=== PATIENT | male | born 1945 | race Caucasian/White ===

== ENCOUNTER 2016-12-11 10:26 | Day surgery (SDC) | payer BC ==
[2016-12-08 14:52] VITALS: BMI 27.5
[2016-12-11] MEDS ORDERED: PROPOFOL 20 ML ONE ×3 (11:15)
[2016-12-11] MEDS ORDERED: LIDOCAINE HCL/PF 1% SDV 5ML VIAL ONE (11:16)
[2016-12-11] MEDS ORDERED: ePHEDrine SULFATE 50 MG/1 ML AMPULE ONE (11:55)
[2016-12-11 12:21] VITALS: TEMP 97.9
[2016-12-11 13:10] VITALS: BP 128/59; PULSE 73
--- NOTE | 2016-12-13 13:51 | PATH ---
Surgical Pathology Report Patient Name: DEJA HARRIS [facility]. Rec. #: [id number] /Age/Gender: 1945 (Age: 71) / M Account: [id number] Location: U-ENDOSCOPY Taken: 12/11/2016 Received: 12/11/2016 Reported: 12/13/2016 Physicians: Jesus Alberto Perera M.D. Specimen(s) Received A: POLYP ASCENDING COLON B: POLYP DESCENDING COLON Clinical History Screening for malignant neoplasm Colon polyps, redundant colon, diverticulosis Final Diagnosis A. ASCENDING COLON, POLYP, POLYPECTOMY: TUBULAR ADENOMA. B. DESCENDING COLON, POLYP, POLYPECTOMY: TUBULAR ADENOMA. Electronically Signed Argelia Amin M.D. Gross Description A. Received in formalin, labeled "polyp ascending colon" are 5 fournier, irregular portions of soft tissue ranging from 0.1-0.2 cm. in greatest dimension. The specimens are submitted in toto in one cassette. B. Received in formalin, labeled "polyp descending" is a fournier, irregular portion of soft tissue measuring 0.3 cm. in greatest dimension. The specimen is submitted in toto in one cassette. 12/11/201612/11/2016
== END 2016-12-11 14:00 | disposition home or self-care (01) ==
LOC: JASU-ENDO 10:26
PROVIDERS: ATTEND Internal Medicine Gastroenterology
PROC: 0DBM8ZX Excision of Descending Colon, Via Natural or Artificial Opening Endoscopic, Diagnostic (ICD-10-PCS; 2016-12-11)
PROC: 0DBK8ZX Excision of Ascending Colon, Via Natural or Artificial Opening Endoscopic, Diagnostic (ICD-10-PCS; principal; 2016-12-11 11:30)
DX: Z12.11 Encounter for screening for malignant neoplasm of colon (principal); Z86.010 Personal history of colon polyps; K57.30 Diverticulosis of large intestine without perforation or abscess without bleeding; D12.2 Benign neoplasm of ascending colon; D12.4 Benign neoplasm of descending colon; D12.3 Benign neoplasm of transverse colon; K63.89 Other specified diseases of intestine
CPT/HCPCS: 88305-TC

== ENCOUNTER 2017-08-07 05:11 | Day surgery (SDC) | payer BC ==
[2017-08-02 11:46] VITALS: BMI 29.1
[~2017-08-07 05:11] MED LIST: TOBRA 0.3%/DEXAMETH 0.1% OPHTHALMIC SUSP 2.5 ML BTL TP ONE
[2017-08-07] MEDS ORDERED: TOBRA 0.3%/DEXAMETH 0.1% OPHTHALMIC SUSP 2.5 ML BTL ONE (07:39)
[2017-08-07] MEDS ORDERED: LIDOCAINE HCL/PF 1% SDV 5ML VIAL ONE (07:40)
[2017-08-07] MEDS: PHENYLEPHRINE 2.5% OPHTH SOLN 15 ML BOTTLE OP SCH ×3 (08:30→08:40)
[2017-08-07] MEDS: MOXIFLOXACIN HCL 0.5% OPHTHALMIC 3 ML BOTTLE OP SCH ×3 (08:30→08:40)
[2017-08-07] MEDS: CYCLOPENTOLATE HCL 1% OPHTH SOLN 2 ML BOTTLE OP SCH ×3 (08:30→08:40)
[2017-08-07] MEDS: TROPICAMIDE 1% OPHTH SOLN 15 ML BOTTLE OP SCH ×3 (08:30→08:40)
[2017-08-07 08:40] VITALS: TEMP 98.6
[2017-08-07] MEDS ORDERED: TETRACAINE 0.5% OPHTH SOLN 2 ML BOTTLE OD ONE (09:56)
[2017-08-07] MEDS ORDERED: MIDAZOLAM HCL 2 MG/2 ML SINGLE DOSE VIAL ONE (09:59)
[2017-08-07] MEDS ORDERED: POVIDONE-IODINE 5% OPHTHALMIC PREP 30 ML SOLUTION OD ONE (10:11)
[2017-08-07] MEDS ORDERED: LIDOCAINE HCL 1% PRESERVATIVE FREE - 30ML VIAL IO ONE (10:19)
[2017-08-07] MEDS ORDERED: BSS (NA/CA/MG/K) BALANCED SALT SOLUTION OPHTH SOLN 15 ML BOTTLE OD ONE (10:19)
[2017-08-07] MEDS ORDERED: CHONDROITIN SU A/HYALUR SOD 1 KIT IO ONE (10:19)
[2017-08-07] MEDS ORDERED: EPINEPHrine/PF 1 MG/1 ML (1:1,000) AMPULE SQ ONE (10:32)
[2017-08-07] MEDS ORDERED: EPINEPHrine/PF 1 MG/1 ML (1:1,000) AMPULE ONE (10:42)
[2017-08-07] MEDS ORDERED: TOBRA 0.3%/DEXAMETH 0.1% OPHTHALMIC SUSP 2.5 ML BTL TP ONE (11:14)
--- NOTE | 2017-08-07 11:21 | HP ---
History & Physical Update - History History: No Change - Physical Physical: No Change - Assessment Assessment: No Change - Plan Plan: No Change
[2017-08-07 11:47] VITALS: PULSE 50
[2017-08-07 12:17] VITALS: BP 163/81
--- NOTE | 2017-08-08 08:05 | OP ---
DATE OF OPERATION: 08/07/2017 SURGEON: Shade Jesus MD PREOPERATIVE DIAGNOSIS: Cataract, right eye. OPERATION: Phacoemulsification and intraocular lens implantation, right eye. POSTOPERATIVE DIAGNOSIS: Cataract, right eye. ANESTHESIA: Topical. COMPLICATIONS: None. BLOOD LOSS: None. SPECIMEN: None. BRIEF HISTORY: The patient is a 72-year-old man who presented with decreased vision in the right eye down to 20/70 due to a 2+ to 3+ nuclear sclerotic lens and anterior cortical changes. After the risks, benefits, and alternatives to cataract surgery were discussed with the patient including the increased risk due to the moderately dilating pupil, the patient consented to surgery. DESCRIPTION OF PROCEDURE: The patient was brought to the operating room and prepped and draped in the usual sterile fashion. An eyelid speculum was inserted in the right eye. A paracentesis was made, and the anterior chamber was inflated with nonpreserved lidocaine. This was followed by injection of Viscoat. At this point, it was noted that there was only a moderately dilating pupil that intermittently constricted down from 4.5 to 4 mm. We determined at this point to place 4 iris hooks around the iris in order to enlarge and stabilize the pupil. This was done without incident. A groove was made in the temporal clear cornea which was tunneled forward with a crescent blade. The anterior chamber was entered with a 2.75 keratome. The cystotome was used to make an incision in the center of the capsule, and a continuous curvilinear capsulorrhexis was created. The lens was hydrodissected until it was found to rotate freely within the capsular bag. Phacoemulsification was started. However, it was noted that there was very minimal phacoemulsification energy provided by the phacoemulsification tip. The tip was changed, and a similar incident occurred. At this point, the phacoemulsification machine was turned off and restarted, and sculpting was completed. However, upon quadrant removal, it was noted that irrigation could not be stopped from the machine. At this point, a new machine was brought out and restarted, and quadrant removal and further phacoemulsification was completely with this new machine. Irrigation and aspiration were used to remove residual cortical material. The anterior chamber and capsular bag were reinflated with Provisc, and a 21.0-diopter SN60WF AcrySof intraocular lens was injected into the capsular bag using the Sheridan injector. The lens was dialed into place using a Sinskey hook. Irrigation and aspiration were used to remove residual Viscoelastic. The wound was stromally hydrated until it was found to be watertight. The 4 previously placed iris hooks were removed without incident. The pupil was found to be round and regular with no peaking. The wound was found to be watertight, and the eye was at an appropriate pressure. The eyelid speculum was removed from the eye, and TobraDex drops and a clear shield were placed over the right eye. The patient was transferred to the recovery room in stable condition and will follow up tomorrow. Han PHILIP/[id number]
== END 2017-08-07 12:15 | disposition home or self-care (01) ==
LOC: JASU-SURG 05:11 → EDSTATUS 11:15 → JASU-SURG 12:15
PROVIDERS: ATTEND Ophthalmology
PROC: 08RJ3JZ Replacement of Right Lens with Synthetic Substitute, Percutaneous Approach (ICD-10-PCS; principal; 2017-08-07 10:00)
DX: H25.11 Age-related nuclear cataract, right eye (principal); H57.04 Mydriasis

== ENCOUNTER 2017-12-21 01:33 | Emergency (ER) | payer BC ==
[2017-12-21 02:06] VITALS: TEMP 97.3; BMI 33.9
--- NOTE | 2017-12-21 02:53 | PDOC ---
Attending Attestation - HPI HPI: 12/21/17 03:02 The patient is a 72 year old male with a significant PMH of type 2 diabetes, HTN , and past stroke (4 years ago, on Plavix) who presents to the emergency department with bilateral leg pain. He describes his leg pain as a bilateral burning sensation which is aggravated by lying still and alleviated by ambulating. He reports he has been unable to sleep secondary to his pain. He denies back pain. The patient reports receiving Gabapentin from his PCP which he has used to some relief. Allergies: Heparin PCP: Dr. Lewis <Anson Figueredo - Last Filed: 12/21/17 03:02> - Resident Resident Name: Juan Carlos Sy - ED Attending Attestation I have performed the following: I have examined & evaluated the patient, The case was reviewed & discussed with the resident, I agree w/resident's findings & plan, Exceptions are as noted - Physicial Exam PE: 12/21/17 05:04 *Physical Exam General Appearance: Yes: Appropriately Dressed. No: Apparent Distress, Intoxicated HEENT: positive: EOMI, MARLIN, Normal ENT Inspection, Normal Voice, TMs Normal, Pharynx Normal. negative: Pale Conjunctivae, Photophobia, Scleral Icterus (R), Scleral Icterus (L) Neck: positive: Trachea midline, Normal Thyroid, Supple. negative: Tender, Rigid, Carotid bruit, Stridor, Lymphadenopathy (R), Lymphadenopathy (L), Thyromegaly Respiratory/Chest: positive: Lungs Clear, Normal Breath Sounds. negative: Chest Tender, Respiratory Distress, Accessory Muscle Use, Labored Respiration, RES, Crackles, Rales, Rhonchi, Stridor, Wheezing, Dullness Cardiovascular: positive: Regular Rhythm, Regular Rate, S1, S2. negative: Edema , JVD, Murmur, Bradycardia, Tachycardia Vascular Pulses: Dorsalis-Pedis (R): 2+, Doralis-Pedis (L): 2+ Gastrointestinal/Abdominal: positive: Normal Bowel Sounds, Flat, Soft. negative : Tender, Organomegaly, Pulsatile Mass, Increased Bowel Sounds, Decreased BS, Distended, Guarding, Rebound, Hernia, Hepatomegaly, Spleenomegaly Lymphatic: negative: Adenopathy, Tenderness Musculoskeletal: positive: Normal Inspection. negative: CVA Tenderness, Decreased Range of Motion Extremity: positive: Normal Capillary Refill, Normal Inspection, Normal Range of Motion, Pelvis Stable. negative: Tender, Pedal Edema, Swelling, Erythema Integumentary: positive: Normal Color, Dry, Warm. negative: Cyanotic, Erythema , Jaundice, Rash Neurologic: positive: custom home installer II-XII NML intact, Fully Oriented, Alert, Normal Mood/ Affect, Motor Strength 5/5. negative: EOM Palsy, Facial Droop, Sensory Deficit - Medical Decision Making 12/25/17 19:37 pt treated and released <Jone Castillo - Last Filed: 12/25/17 19:37>
--- NOTE | 2017-12-21 02:55 | PDOC ---
History of Present Illness - General Chief Complaint: Pain, Acute Stated Complaint: LEG PAIN Time Seen by Provider: 12/21/17 02:05 History Source: Patient Exam Limitations: No Limitations - History of Present Illness Initial Comments: 12/21/17 03:17 72M with pmh of HTN (usually in the 140's-150's, on metroprolol and hydralyizine ) stroke 4 years ago on Plavix and DM2, currently on Amoxicillin presents with bilateral 10/10 burning sensation in the legs since yesterday morning of equal distribution throughout the legs. Was given Gabapentin by his canary raiser which worked for an hour before the pain came back. The pain is exacerbated by immobility and unchanged by any motion of the spine, hips or knees (either flexion or extension) PCP: Debbie Past History - Past Medical History Allergies/Adverse Reactions: Allergies Allergy/AdvReac Type Severity Reaction Status Date / Time heparin Allergy Unknown Verified 12/21/17 01:58 Home Medications: Ambulatory Orders Atorvastatin Ca [Lipitor] 20 mg PO HS 08/11/15 Hydralazine HCl 100 mg PO BID 12/11/16 Insulin Glargine,Hum.rec.anlog [Toujeo Solostar] 18 unit SQ DAILY 12/11/16 Metoprolol Tartrate 50 mg PO BID 12/11/16 Escitalopram Oxalate [Lexapro -] 5 mg PO DAILY 08/02/17 Clopidogrel Bisulfate [Plavix -] 75 mg PO DAILY 08/07/17 Anemia: No Asthma: No Cancer: Yes (LOW GRADE LYMPHOMA) Cardiac Disorders: No CVA: Yes COPD: No CHF: No Dementia: No Diabetes: Yes GI Disorders: Yes (DIVERTICULOSIS, HEMORRHOIDS,GERD) Disorders: No HTN: Yes Hypercholesterolemia: Yes Liver Disease: No Seizures: No Thyroid Disease: No - Surgical History Abdominal Surgery: Yes (UMBILICAL HERNIA REPAIR) Appendectomy: No Cardiac Surgery: No Cholecystectomy: No GI Surgery: (HEMERRHOID) Lung Surgery: No Neurologic Surgery: No Orthopedic Surgery: No - Immunization History Immunization Up to Date: Yes - Suicide/Smoking/Psychosocial Hx Smoking Status: Yes Smoking History: Never smoked Have you smoked in the past 12 months: No Number of Cigarettes Smoked Daily: 35 If you are a former smoker, when did you quit?: 1984 Information on smoking cessation initiated: No 'Breaking Loose' booklet given: 12/31/13 Hx Alcohol Use: No Drug/Substance Use Hx: No Substance Use Type: Alcohol Hx Substance Use Treatment: No Review of Systems - Review of Systems Able to Perform ROS?: Yes Is the patient limited Tongan proficient: No Constitutional: No: Symptoms Reported HEENTM: No: Symptoms Reported Respiratory: No: Symptoms reported Cardiac (ROS): No: Symptoms Reported ABD/GI: No: Symptoms Reported : No: Symptoms Reported Musculoskeletal: Yes: See HPI Integumentary: No: Symptoms Reported Neurological: No: Symptoms reported All Other Systems: Reviewed and Negative *Physical Exam - Vital Signs Last Vital Signs Temp Pulse Resp BP Pulse Ox 97.3 F L 64 20 211/103 97 12/21/17 01:35 12/21/17 01:35 12/21/17 01:35 12/21/17 01:35 12/21/17 01:35 - Physical Exam General Appearance: Yes: Nourished, Appropriately Dressed, Mild Distress HEENT: positive: EOMI, MARLIN, Normal ENT Inspection Respiratory/Chest: positive: Lungs Clear, Normal Breath Sounds. negative: Chest Tender, Respiratory Distress Cardiovascular: positive: Regular Rhythm, Regular Rate, S1, S2 Gastrointestinal/Abdominal: positive: Normal Bowel Sounds, Flat, Soft Extremity: positive: Normal Capillary Refill, Normal Inspection, Normal Range of Motion, Tender, Calf Tenderness (and along the leg). negative: Coldness, Cyanosis Integumentary: positive: Normal Color, Dry, Warm Neurologic: positive: Fully Oriented, Alert, Normal Mood/Affect ED Treatment Course - LABORATORY CBC & Chemistry Diagram: 12/21/17 03:13 12/21/17 03:13 Medical Decision Making - Medical Decision Making 12/21/17 03:27 Will draw basic labs, electrolytes, Lumbar spine ct pending. Patient bp in the 21's, will give morphine to address pain and bp control 12/21/17 03:31 12/21/17 05:[address] negative Duplex pending 12/21/17 07:06 Patient signed out to Dr. 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
[2017-12-21] MEDS ORDERED: LABETALOL HCL 5 MG/1 ML (100MG/20 ML VIAL) IVPUSH ONE (02:57)
[2017-12-21] MEDS ORDERED: morphine CARPU-JECT 4 MG/1 ML DISP.SYRIN IVPUSH ONE (02:59)
[2017-12-21] MEDS ORDERED: MORPHINE SULFATE 10 MG/1 ML *VIAL ONE (03:12)
[2017-12-21] MEDS ORDERED: LABETALOL HCL 5 MG/1 ML (200MG/40ML VIAL) IVPB ONE (03:13)
[2017-12-21 03:23] LABS: BASO % 1.3 % (0-2.0); EOS % 2.8 % (0-4.5); HEMATOCRIT 44.8 % (35.4-49); HEMOGLOBIN 14.7 GM/dL (11.7-16.9); MCH 29.7 pg (25.7-33.7); MCHC 32.7 g/dl (32.0-35.9); MEAN CELL VOLUME 90.7 fl (80-96); MONO % 17.1 % (3.8-10.2); NEUT % 50.8 % (42.8-82.8); PLATELET COUNT 286 K/MM3 (134-434); RBC 4.94 M/mm3 (4.00-5.60); RDW 14.9 % (11.9-15.9)
[2017-12-21 03:51] LABS: ALBUMIN 3.4 g/dl (3.4-5.0); ALK PHOS 106 U/L (45-117); ANION GAP 10 (8-16); BILIRUBIN,TOTAL 0.5 mg/dL (0.2-1.0); BLOOD UREA NITROGEN 23 mg/dL (7-18); CALCIUM 8.6 mg/dL (8.5-10.1); CHLORIDE 107 mmol/L (98-107); CO2 23 mmol/L (21-32); CREATININE 1.5 mg/dL (0.7-1.3); GLUCOSE,RANDOM 121 mg/dL (74-106); MAGNESIUM 2.1 mg/dL (1.8-2.4); PHOSPHOROUS 3.3 mg/dL (2.5-4.9); POTASSIUM 4.6 mmol/L (3.5-5.1); SGOT/AST 21 U/L (15-37); SGPT/ALT 27 U/L (12-78); SODIUM 140 mmol/L (136-145); TOT PROT 7.2 g/dl (6.4-8.2)
--- NOTE | 2017-12-21 07:12 | PDOC ---
*Physical Exam - Vital Signs Last Vital Signs Temp Pulse Resp BP Pulse Ox 97.3 F L 60 16 151/64 95 12/21/17 01:35 12/21/17 03:43 12/21/17 03:43 12/21/17 03:43 12/21/17 03:43 ED Treatment Course - LABORATORY CBC & Chemistry Diagram: 12/21/17 03:13 12/21/17 03:13 - ADDITIONAL ORDERS Additional order review: Laboratory Results 12/21/17 03:13 Sodium 140 Potassium 4.6 Chloride 107 Carbon Dioxide 23 Anion Gap 10 BUN 23 H Creatinine 1.5 H Creat Clearance w eGFR 45.87 Random Glucose 121 H Calcium 8.6 Phosphorus 3.3 Magnesium 2.1 Total Bilirubin 0.5 D AST 21 D ALT 27 Alkaline Phosphatase 106 Total Protein 7.2 Albumin 3.4 12/21/17 03:13 RBC 4.94 MCV 90.7 MCHC 32.7 RDW 14.9 MPV 10.0 Neutrophils % 50.8 Lymphocytes % 28.0 Monocytes % 17.1 H Eosinophils % 2.8 Basophils % 1.3 - Medications Given in the ED: ED Medications Discontinued Medications Generic Name Dose Route Start Last Admin Trade Name Freq PRN Reason Stop Dose Admin Labetalol HCl 20 mg 12/21/17 02:57 12/21/17 03:20 Normodyne Injection - IVPUSH 12/21/17 02:58 Not Given ONCE ONE Morphine Sulfate 8 mg 12/21/17 02:59 12/21/17 03:17 Morphine Injection - IVPUSH 12/21/17 03:00 8 mg ONCE ONE Administration Medical Decision Making - Medical Decision Making 12/21/17 07:12 Care taken over from Dr. Sy. 12/21/17 10:09 Patient noted to have no DVT by duplex US. Patient reports he has just started his gabapentin; advised it can take time to start working and that he should f/ u w/ chemical weigher next week. Tramadol Rx sent to patient's pharmacy for emergency pain control bridge as needed. Discharging patient to home. Patient verbalized understanding and agreement and will comply. 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 Return if any increase in pain, fever, chills, or other concerning symptoms. A prescription for pain control has been sent to your pharmacy. Take as needed for breakthrough pain. - Post Discharge Activity
[2017-12-21 11:15] VITALS: BP 154/74; PULSE 57
== END 2017-12-21 10:50 | disposition home or self-care (01) ==
LOC: JER 01:33
PROC: 3E033NZ Introduction of Analgesics, Hypnotics, Sedatives into Peripheral Vein, Percutaneous Approach (ICD-10-PCS; principal; 2017-12-21)
DX: E11.42 Type 2 diabetes mellitus with diabetic polyneuropathy (principal); Z79.4 Long term (current) use of insulin; I10 Essential (primary) hypertension; E78.00 Pure hypercholesterolemia, unspecified; Z86.73 Personal history of transient ischemic attack (TIA), and cerebral infarction without residual deficits; Z79.01 Long term (current) use of anticoagulants; Z87.19 Personal history of other diseases of the digestive system
CPT/HCPCS: 36415; 72131-TC; 80053; 83735; 84100; 85025; 93970-TC; 96374; 99284-25